=== PATIENT | male | born 1965 | race Caucasian/White ===

== ENCOUNTER 2017-01-18 10:04 | Emergency (ER) | payer MEDICAID ==
[~2017-01-18] VITALS: Ht 177.8 cm; Wt 72.6 kg
[2017-01-18] MEDS ORDERED: SODIUM CHLORIDE 0.9% 1,000 ML IVB ONE (10:18)
[2017-01-18] MEDS ORDERED: SODIUM CHLORIDE 0.9% 500 ML IVB ONE (10:18)
[2017-01-18] MEDS ORDERED: FLUMAZENIL 0.1 MG/ML INJ 10ML MDV IV ONE (10:30)
[2017-01-18 10:50] LABS: Basophils # (auto) 0 uL; Basophils % (auto) 0.6 % (0.0-2.0); CONDITION Y; DEFINITIVE SEE PRINTOUT; Eosinophils # (auto) 0.1 uL; Eosinophils % (auto) 0.8 % (0.0-7.0); Hematocrit 50.6 % (41.0-53.0); Hemoglobin 17.6 g/dL (13.5-17.5); Lymphocytes % (auto) 13.4 % (10.0-50.0); Mean Corpuscular Hemoglobin 35.8 pg (28.0-32.0); Mean Corpuscular Hgb Conc. 34.9 g/dL (32.0-36.0); Mean Corpuscular Volume 102.6 fL (80.0-100.0); Mean Platelet Volume 8.7 fL (7.4-10.4); Monocytes # (auto) 0.7 uL; Monocytes % (auto) 9.4 % (0.0-12.0); Neutrophils # (auto) 5.6 uL; Neutrophils % (auto) 75.8 % (37.0-80.0); Platelet Count (auto) 124 10^3/uL (140-450); Red Cell Distribution Width 13.1 % (11.6-16.0); White Blood Cell 7.4 10^3/uL (4.4-10.8)
[2017-01-18 11:10] LABS: Salicylate 3.2 mg/dL (2.8-20.0)
[2017-01-18 11:13] LABS: Acetaminophen < 2.0 ug/mL (10-30)
[2017-01-18 11:20] VITALS: BP 158/108
[2017-01-18 11:23] LABS: Albumin 3.8 g/dL (3.4-5.0); BUN/Creatinine Ratio 7.1; Potassium 3.4 mmol/L (3.5-5.1); Total Protein 7.5 g/dL (6.4-8.2)
== END 2017-01-18 13:15 | disposition home or self-care (01) ==
LOC: ER 10:18
DX: E86.0 Dehydration (principal); F10.120 Alcohol abuse with intoxication, uncomplicated; F17.210 Nicotine dependence, cigarettes, uncomplicated; F12.10 Cannabis abuse, uncomplicated
CPT/HCPCS: 36415; 70450; 71020; 80053; 80320; 80329; 85025

== ENCOUNTER 2017-01-21 10:57 | Emergency (ER) | payer MEDICAID ==
[~2017-01-21] VITALS: Ht 177.8 cm; Wt 72.6 kg
[2017-01-21 11:43] VITALS: BP 137/102
== END 2017-01-21 12:16 | disposition home or self-care (01) ==
LOC: ER 10:57
DX: F41.9 Anxiety disorder, unspecified (principal); F10.239 Alcohol dependence with withdrawal, unspecified; F12.10 Cannabis abuse, uncomplicated; Y90.9 Presence of alcohol in blood, level not specified; F17.210 Nicotine dependence, cigarettes, uncomplicated; Z76.0 Encounter for issue of repeat prescription

== ENCOUNTER 2017-02-17 08:48 | Emergency (ER) | payer MEDICAID ==
[~2017-02-17] VITALS: Ht 177.8 cm; Wt 77.1 kg
[2017-02-17 09:24] LABS: Basophils # (auto) 0.1 uL; Basophils % (auto) 1.2 % (0.0-2.0); CONDITION Y; Eosinophils # (auto) 0.1 uL; Eosinophils % (auto) 1.5 % (0.0-7.0); Hematocrit 53.3 % (41.0-53.0); Hemoglobin 18.4 g/dL (13.5-17.5); Lymphocytes # (auto) 1.3 uL; Lymphocytes % (auto) 19.6 % (10.0-50.0); Mean Corpuscular Hemoglobin 34.3 pg (28.0-32.0); Mean Corpuscular Hgb Conc. 34.4 g/dL (32.0-36.0); Mean Corpuscular Volume 99.6 fL (80.0-100.0); Mean Platelet Volume 8.6 fL (7.4-10.4); Monocytes # (auto) 0.5 uL; Neutrophils # (auto) 4.8 uL; Neutrophils % (auto) 70.7 % (37.0-80.0); Platelet Count (auto) 110 10^3/uL (140-450); Red Cell Distribution Width 12.9 % (11.6-16.0); White Blood Cell 6.8 10^3/uL (4.4-10.8)
[2017-02-17 09:39] LABS: Urine Bilirubin Negative (Negative); Urine Blood Negative /uL (Negative); Urine Color Yellow (Yellow); Urine Glucose Normal (Normal); Urine Ketone TRACE (Negative); Urine Mucus FEW (None Seen); Urine Nitrite Negative (Negative); Urine RBC <1 /hpf (0 - 3); Urine pH 5.5 (5.0-8.0)
[2017-02-17 09:53] LABS: Anion Gap 14 (5-15); Aspartate Aminotransferase 173 U/L (15-37); BUN/Creatinine Ratio 9.4; Blood Urea Nitrogen 5 mg/dL (7-18); Calcium 8.6 mg/dL (8.5-10.1); Carbon Dioxide 19 mmol/L (21-32); Chloride 106 mmol/L (98-107); GFR African American 212 mL/min; GFR Non-African American 175 mL/min; Glucose 124 mg/dL (74-106); Magnesium 2.6 mg/dL (1.6-2.6); Potassium 3.6 mmol/L (3.5-5.1); Sodium 139 mmol/L (136-145)
[2017-02-17 09:58] LABS: Alkaline Phosphatase 186 U/L (45-117); Bilirubin, Total 1.9 mg/dL (0.2-1.0); Total Protein 7.4 g/dL (6.4-8.2)
[2017-02-17] MEDS ORDERED: SODIUM CHLORIDE 0.9% 1,000 ML IV ONE (10:25)
[2017-02-17] MEDS ORDERED: THIAMINE INJ 100 MG, MULTIPLE VITAMIN 10 ML, FOLIC ACID 1 MG, MAGNESIUM SULF SDV 50% 8 ... IV SCH ×5 (12:00)
[2017-02-17 13:00] VITALS: BP 141/81
== END 2017-02-17 13:31 | disposition home or self-care (01) ==
LOC: ER 08:48
DX: R42 Dizziness and giddiness (principal); F10.10 Alcohol abuse, uncomplicated; F12.10 Cannabis abuse, uncomplicated; R74.8 Abnormal levels of other serum enzymes; R10.84 Generalized abdominal pain; F17.210 Nicotine dependence, cigarettes, uncomplicated
CPT/HCPCS: 36415; 71010; 80053; 80307; 80320; 81001; 83735; 84443; 84484; 85025; 93005; 94761; 96361; 96365; 99285; J3411; J3475; J7030

== ENCOUNTER 2017-07-14 16:27 | Inpatient (IN) | payer MEDICAID ==
[~2017-07-14] VITALS: Ht 177.8 cm; Wt 75.5 kg
[2017-07-14 17:52] LABS: Basophils # (auto) 0 uL; Basophils % (auto) 0.2 % (0.0-2.0); Eosinophils # (auto) 0 uL; Hematocrit 37.3 % (41.0-53.0); Hemoglobin 12.6 g/dL (13.5-17.5); Lymphocytes # (auto) 0.3 uL; Lymphocytes % (auto) 3.9 % (10.0-50.0); Mean Corpuscular Hemoglobin 32.2 pg (28.0-32.0); Mean Corpuscular Hgb Conc. 33.7 g/dL (32.0-36.0); Mean Corpuscular Volume 95.4 fL (80.0-100.0); Monocytes # (auto) 0.9 uL; Monocytes % (auto) 11.1 % (0.0-12.0); Neutrophils # (auto) 7.2 uL; Neutrophils % (auto) 84.8 % (37.0-80.0); Nucleated Red Blood Cells % 0.1 %; Red Blood Cells 3.91 10^6/uL (4.5-5.90); White Blood Cell 8.5 10^3/uL (4.4-10.8)
[2017-07-14 18:12] LABS: Platelet Count (auto) 77 10^3/uL (140-450)
[2017-07-14 18:32] LABS: Alanine Aminotransferase 42 U/L (16-61); Albumin 3.7 g/dL (3.4-5.0); Alkaline Phosphatase 273 U/L (45-117); Anion Gap 18 (5-15); Aspartate Aminotransferase 92 U/L (15-37); BUN/Creatinine Ratio 16.7; Bilirubin, Total 4.3 mg/dL (0.2-1.0); Blood Alcohol < 3.0 mg/dL (0-5); Blood Urea Nitrogen 15 mg/dL (7-18); Calcium 8.9 mg/dL (8.5-10.1); Carbon Dioxide 25 mmol/L (21-32); Chloride 94 mmol/L (98-107); GFR African American 115 mL/min; GFR Non-African American 95 mL/min; Glucose 113 mg/dL (74-106); Potassium 3.5 mmol/L (3.5-5.1); Sodium 137 mmol/L (136-145)
[2017-07-14] MEDS ORDERED: LORazepam 2MG/ML-1ML VIAL IV ONE (19:45)
[2017-07-14] MEDS ORDERED: SODIUM CHLORIDE 0.9% 1,000 ML IV ONE (19:45)
[2017-07-14 20:13] LABS: Urine Bacteria NONE SEEN /hpf (None Seen); Urine Blood Negative /uL (Negative); Urine Hyaline Cast FEW /lpf (0 - 2); Urine Mucus FEW (None Seen); Urine WBC 3 /hpf (0 - 3)
[2017-07-14 20:27] LABS: Alcohol, Urine < 3.0 mg/dL (0-5); Amphetamine Screen, Urine NEGATIVE (NEGATIVE); Barbiturate Scree,Urine NEGATIVE (NEGATIVE); Benzodiazephine Screen, Urine NEGATIVE (NEGATIVE); Cannabinoid Screen, Urine NEGATIVE (NEGATIVE); Cocaine Screen, Urine NEGATIVE (NEGATIVE); Opiate Scree,Urine NEGATIVE (NEGATIVE); Phencyclidine Screen, Urine NEGATIVE (NEGATIVE)
[2017-07-14] MEDS ORDERED: ONDANSETRON HCL 4 MG/2 ML VIAL IV ONE (20:45)
[2017-07-15] MEDS ORDERED: ONDANSETRON HCL 4 MG/2 ML VIAL IV PRN (01:15)
[2017-07-15] MEDS: LORazepam 2MG/ML-1ML VIAL IV PRN ×3 (02:52→21:47)
[2017-07-15] MEDS: chlordiazePOXIDE HCL 25 MG CAP PO PRN ×2 (10:40→20:09)
[2017-07-15] MEDS ORDERED: THIAMINE INJ 100 MG, MULTIPLE VITAMIN 10 ML, FOLIC ACID 1 MG, MAGNESIUM SULF SDV 50% 8 ... IV ONE ×5 (12:00)
[2017-07-15 13:00] VITALS: BP 108/69
[2017-07-15 17:00] VITALS: BP 127/75
[2017-07-15] MEDS: THIAMINE INJ 100 MG, MULTIPLE VITAMIN 10 ML, FOLIC ACID 1 MG, MAGNESIUM SULF SDV 50% 8 ... IV SCH ×5 (21:47)
[2017-07-15] MEDS: PANTOPRAZOLE 40 MG/10 ML VIAL IV SCH (21:59)
[2017-07-15 22:00] VITALS: BP 119/70
[2017-07-16] VITALS (11 sets, daily range): BP systolic 95–113; BP diastolic 58–75
[2017-07-16 08:17] LABS: Basophils # (auto) 0 uL; Basophils % (auto) 0.4 % (0.0-2.0); Eosinophils # (auto) 0 uL; Lymphocytes # (auto) 0.7 uL; Monocytes # (auto) 0.5 uL; Neutrophils # (auto) 2.2 uL; White Blood Cell 3.4 10^3/uL (4.4-10.8)
[2017-07-16 08:19] LABS: Eosinophils % (auto) 0.8 % (0.0-7.0); Hematocrit 20.2 % (41.0-53.0); Lymphocytes % (auto) 21.1 % (10.0-50.0); Mean Corpuscular Hemoglobin 33.1 pg (28.0-32.0); Mean Corpuscular Hgb Conc. 33.9 g/dL (32.0-36.0); Mean Corpuscular Volume 97.7 fL (80.0-100.0); Monocytes % (auto) 13.3 % (0.0-12.0); Neutrophils % (auto) 64.4 % (37.0-80.0); Red Blood Cells 2.07 10^6/uL (4.5-5.90); Red Cell Distribution Width 15.9 % (11.8-14.3)
[2017-07-16 08:28] LABS: INR 1.28 (0.9-1.15); Partial Thromboplastin Time 29.9 sec (22.64-33.71)
[2017-07-16 08:32] LABS: Platelet Count (auto) 44 10^3/uL (140-450)
[2017-07-16 08:35] LABS: Albumin 2.6 g/dL (3.4-5.0); BUN/Creatinine Ratio 61.1; Bilirubin, Total 2.3 mg/dL (0.2-1.0); Calcium 7.3 mg/dL (8.5-10.1); Potassium 3.1 mmol/L (3.5-5.1); Total Protein 4.7 g/dL (6.4-8.2)
[2017-07-16 08:36] LABS: Hemoglobin 6.9 g/dL (13.5-17.5)
[2017-07-16] MEDS: PANTOPRAZOLE 40 MG/10 ML VIAL IV SCH (09:49)
[2017-07-16] MEDS: LORazepam 2MG/ML-1ML VIAL IV PRN ×2 (10:43→21:54)
[2017-07-16] MEDS ORDERED: POTASSIUM CHLORIDE 40 MEQ, LIDOCAINE 1% (LOCAL ANESTH.) 4 ML in SODIUM CHL 0.9% 100 ML IV ONE (10:45)
[2017-07-16] MEDS ORDERED: SODIUM CHLORIDE LOCK 10 ML ONE (11:12)
[2017-07-16] MEDS ORDERED: diphenhdrAMINE HCL 50 MG/1 ML VL ONE (11:12)
[2017-07-16] MEDS ORDERED: LIDOCAINE VISCOUS 2% 15ML UD ONE (11:12)
[2017-07-16] MEDS ORDERED: NALOXONE HCL 0.4 MG/ML VIAL ONE ×2 (11:12→13:52)
[2017-07-16] MEDS ORDERED: FLUMAZENIL 0.1 MG/ML INJ 10ML MDV IV ONE ×2 (11:12→13:52)
[2017-07-16 11:16] LABS: Basophils # (auto) 0 uL; Basophils % (auto) 0.3 % (0.0-2.0); Eosinophils # (auto) 0 uL; Eosinophils % (auto) 0.4 % (0.0-7.0); Hemoglobin 7.5 g/dL (13.5-17.5); Lymphocytes # (auto) 0.6 uL; Lymphocytes % (auto) 15.3 % (10.0-50.0); Mean Corpuscular Hemoglobin 33.4 pg (28.0-32.0); Mean Corpuscular Hgb Conc. 34.1 g/dL (32.0-36.0); Monocytes # (auto) 0.5 uL; Monocytes % (auto) 11.8 % (0.0-12.0); Neutrophils % (auto) 72.2 % (37.0-80.0); Nucleated Red Blood Cells % 0.1 %; Red Blood Cells 2.24 10^6/uL (4.5-5.90); Red Cell Distribution Width 15.7 % (11.8-14.3); White Blood Cell 4.1 10^3/uL (4.4-10.8)
[2017-07-16 11:19] LABS: Platelet Count (auto) 56 10^3/uL (140-450)
[2017-07-16] MEDS: fentaNYL CITRATE 100 MCG/2 ML VL ONE ×2 (14:07→14:11)
[2017-07-16] MEDS: MIDAZOLAM HCL 5 MG/ML-1ML VIAL ONE ×2 (14:07→14:11)
[2017-07-16] MEDS: THIAMINE INJ 100 MG, MULTIPLE VITAMIN 10 ML, FOLIC ACID 1 MG, MAGNESIUM SULF SDV 50% 8 ... IV SCH ×5 (21:54)
[2017-07-17 05:50] VITALS: BP 124/71
[2017-07-17 06:24] LABS: Basophils # (auto) 0 uL; Eosinophils # (auto) 0 uL; Hemoglobin 9.6 g/dL (13.5-17.5); Lymphocytes # (auto) 0.4 uL; Monocytes # (auto) 0.3 uL; Neutrophils # (auto) 2.2 uL
[2017-07-17 06:27] LABS: Basophils % (auto) 0.5 % (0.0-2.0); Eosinophils % (auto) 1.5 % (0.0-7.0); Hematocrit 28.1 % (41.0-53.0); Lymphocytes % (auto) 14.8 % (10.0-50.0); Mean Corpuscular Hemoglobin 32.6 pg (28.0-32.0); Mean Corpuscular Hgb Conc. 34.2 g/dL (32.0-36.0); Mean Corpuscular Volume 95.2 fL (80.0-100.0); Monocytes % (auto) 9.4 % (0.0-12.0); Neutrophils % (auto) 73.8 % (37.0-80.0); Nucleated Red Blood Cells % 0.2 %; Platelet Count (auto) 51 10^3/uL (140-450); Red Blood Cells 2.95 10^6/uL (4.5-5.90)
[2017-07-17 06:54] LABS: Albumin 2.8 g/dL (3.4-5.0); BUN/Creatinine Ratio 30.4; Bilirubin, Total 2.5 mg/dL (0.2-1.0); Calcium 7.6 mg/dL (8.5-10.1); Magnesium 2.7 mg/dL (1.6-2.6); Potassium 3.4 mmol/L (3.5-5.1); Total Protein 5.2 g/dL (6.4-8.2)
[2017-07-17] MEDS: LORazepam 2MG/ML-1ML VIAL IV PRN (08:11)
[2017-07-17 09:00] VITALS: BP 111/70
[2017-07-17] MEDS ORDERED: POTASSIUM CHLORIDE 40 MEQ, LIDOCAINE 1% (LOCAL ANESTH.) 4 ML in SODIUM CHL 0.9% 100 ML IV ONE ×2 (09:15→10:00)
[2017-07-17] MEDS ORDERED: LORazepam 2MG/ML-1ML VIAL IV PRN (09:45)
[2017-07-17] MEDS: PANTOPRAZOLE 40 MG TAB PO SCH (10:26)
[2017-07-17] MEDS: chlordiazePOXIDE HCL 25 MG CAP PO PRN ×3 (10:26→20:59)
[2017-07-17 13:00] VITALS: BP 122/76
[2017-07-17 16:58] VITALS: BP 119/79
[2017-07-17 20:00] VITALS: BP 122/87
[2017-07-17] MEDS: THIAMINE INJ 100 MG, MULTIPLE VITAMIN 10 ML, FOLIC ACID 1 MG, MAGNESIUM SULF SDV 50% 8 ... IV SCH ×5 (20:59)
[2017-07-17 22:00] VITALS: BP 122/87
[2017-07-18] VITALS (7 sets, daily range): BP systolic 103–124; BP diastolic 67–85
[2017-07-18] MEDS: chlordiazePOXIDE HCL 25 MG CAP PO PRN ×5 (02:19→20:17)
[2017-07-18 06:50] LABS: Basophils # (auto) 0 uL; Eosinophils # (auto) 0.1 uL; Eosinophils % (auto) 2.4 % (0.0-7.0); Hematocrit 29.2 % (41.0-53.0); Hemoglobin 9.9 g/dL (13.5-17.5); Lymphocytes # (auto) 0.6 uL; Lymphocytes % (auto) 18.4 % (10.0-50.0); Mean Corpuscular Hemoglobin 32.4 pg (28.0-32.0); Mean Corpuscular Hgb Conc. 33.8 g/dL (32.0-36.0); Mean Corpuscular Volume 95.7 fL (80.0-100.0); Monocytes # (auto) 0.5 uL; Monocytes % (auto) 13.9 % (0.0-12.0); Neutrophils # (auto) 2.2 uL; Neutrophils % (auto) 64.3 % (37.0-80.0); Nucleated Red Blood Cells % 0.1 %; Platelet Count (auto) 71 10^3/uL (140-450); Red Blood Cells 3.05 10^6/uL (4.5-5.90); Red Cell Distribution Width 17.3 % (11.8-14.3); White Blood Cell 3.4 10^3/uL (4.4-10.8)
[2017-07-18 07:10] LABS: Albumin 2.6 g/dL (3.4-5.0); BUN/Creatinine Ratio 23.5; Bilirubin, Total 2.3 mg/dL (0.2-1.0); Calcium 7.4 mg/dL (8.5-10.1); Potassium 3.4 mmol/L (3.5-5.1); Total Protein 5.1 g/dL (6.4-8.2)
[2017-07-18] MEDS: PANTOPRAZOLE 40 MG TAB PO SCH (09:39)
[2017-07-18] MEDS: LACTULOSE 20Gm/30ML SOLN PO SCH ×2 (12:02→17:29)
[2017-07-18] MEDS: THIAMINE INJ 100 MG, MULTIPLE VITAMIN 10 ML, FOLIC ACID 1 MG, MAGNESIUM SULF SDV 50% 8 ... IV SCH ×5 (20:16)
[2017-07-18] MEDS: NutriHep 250 mL Bottle PO SCH (22:00)
[2017-07-19] MEDS: LACTULOSE 20Gm/30ML SOLN PO SCH ×5 (01:02→23:56)
[2017-07-19] MEDS: chlordiazePOXIDE HCL 25 MG CAP PO PRN ×2 (04:34→20:40)
[2017-07-19 05:34] VITALS: BP 121/79
[2017-07-19 07:59] VITALS: BP 109/70
[2017-07-19] MEDS: PANTOPRAZOLE 40 MG TAB PO SCH (10:00)
[2017-07-19] MEDS: NutriHep 250 mL Bottle PO SCH ×2 (10:00→21:38)
[2017-07-19 12:23] LABS: Hematocrit 27.8 % (41.0-53.0); Hemoglobin 9.4 g/dL (13.5-17.5); Mean Corpuscular Hemoglobin 32.4 pg (28.0-32.0); Mean Corpuscular Volume 95.4 fL (80.0-100.0); Platelet Count (auto) 78 10^3/uL (140-450); Red Blood Cells 2.91 10^6/uL (4.5-5.90); Red Cell Distribution Width 16.9 % (11.8-14.3); White Blood Cell 3.9 10^3/uL (4.4-10.8)
[2017-07-19 12:28] LABS: Band Neutrophils % (manual) 0; Basophils % (manual) 0 (0.0-2.0); Blast Cells 0; Eosinophils % (manual) 0 (0-7); Metamyelocytes % 0; Myelocytes % 0; Promyelocytes % 0; Reactive Lymphocytes 0
[2017-07-19 12:39] LABS: Lymphocytes % (manual) 4 (10.0-50.0); Monocytes % (manual) 14 (0-12)
[2017-07-19 12:47] LABS: Albumin 2.6 g/dL (3.4-5.0); BUN/Creatinine Ratio 17.9; Bilirubin, Total 2.3 mg/dL (0.2-1.0); Calcium 7.5 mg/dL (8.5-10.1); Total Protein 5.2 g/dL (6.4-8.2)
[2017-07-19 13:00] VITALS: BP 114/74
[2017-07-19 17:10] VITALS: BP 118/76
[2017-07-19] MEDS: THIAMINE INJ 100 MG, MULTIPLE VITAMIN 10 ML, FOLIC ACID 1 MG, MAGNESIUM SULF SDV 50% 8 ... IV SCH ×5 (19:46)
[2017-07-19] MEDS ORDERED: POTASSIUM CHLORIDE 40 MEQ, LIDOCAINE 1% (LOCAL ANESTH.) 4 ML in SODIUM CHL 0.9% 250 ML IV ONE (21:00)
[2017-07-19] MEDS ORDERED: POTASSIUM CHL 20 Meq TABLET PO ONE (21:00)
[2017-07-19 22:28] VITALS: BP 129/74
[2017-07-20 04:58] VITALS: BP 118/71
[2017-07-20] MEDS: LACTULOSE 20Gm/30ML SOLN PO SCH ×2 (05:31→11:22)
[2017-07-20 06:52] LABS: Hematocrit 27.9 % (41.0-53.0); Hemoglobin 9.5 g/dL (13.5-17.5); Mean Corpuscular Hemoglobin 32.5 pg (28.0-32.0); Mean Corpuscular Hgb Conc. 33.9 g/dL (32.0-36.0); Mean Corpuscular Volume 95.9 fL (80.0-100.0); Platelet Count (auto) 94 10^3/uL (140-450); Red Blood Cells 2.91 10^6/uL (4.5-5.90); Red Cell Distribution Width 16.5 % (11.8-14.3); White Blood Cell 4.1 10^3/uL (4.4-10.8)
[2017-07-20 06:56] LABS: Band Neutrophils % (manual) 0; Basophils % (manual) 0 (0.0-2.0); Blast Cells 0; Eosinophils % (manual) 0 (0-7); Metamyelocytes % 0; Myelocytes % 0; Promyelocytes % 0; Reactive Lymphocytes 0
[2017-07-20 07:11] LABS: Albumin 2.4 g/dL (3.4-5.0); BUN/Creatinine Ratio 16.1; Potassium 3.5 mmol/L (3.5-5.1)
[2017-07-20 07:15] LABS: Total Protein 4.9 g/dL (6.4-8.2)
[2017-07-20 07:43] LABS: Lymphocytes % (manual) 10 (10.0-50.0); Monocytes % (manual) 24 (0-12)
[2017-07-20 08:48] VITALS: BP 117/78
[2017-07-20] MEDS: NutriHep 250 mL Bottle PO SCH (09:09)
[2017-07-20] MEDS: PANTOPRAZOLE 40 MG TAB PO SCH (09:09)
[2017-07-20 12:33] VITALS: BP 117/78
[2017-07-20 13:00] VITALS: BP 117/73
== END 2017-07-20 13:40 | disposition home or self-care (01) | DRG 241 ==
LOC: EDBD 16:27 → ER 16:37 → TELE 16:38 → TELE-WESTW 07-15 08:28
PROVIDERS: ADMIT Nurse Practitioner Family; ATTEND Internal Medicine
PROC: 30233N1 Transfusion of Nonautologous Red Blood Cells into Peripheral Vein, Percutaneous Approach (ICD-10-PCS; 2017-07-16)
PROC: 0DJ08ZZ Inspection of Upper Intestinal Tract, Via Natural or Artificial Opening Endoscopic (ICD-10-PCS; principal; 2017-07-20)
DX: K29.21 Alcoholic gastritis with bleeding (principal); I85.11 Secondary esophageal varices with bleeding; K76.6 Portal hypertension; D69.6 Thrombocytopenia, unspecified; E88.09 Other disorders of plasma-protein metabolism, not elsewhere classified; K70.30 Alcoholic cirrhosis of liver without ascites; K20.9 Esophagitis, unspecified; D72.819 Decreased white blood cell count, unspecified; D64.9 Anemia, unspecified; F17.210 Nicotine dependence, cigarettes, uncomplicated; K29.81 Duodenitis with bleeding; K72.90 Hepatic failure, unspecified without coma; K31.89 Other diseases of stomach and duodenum; E87.6 Hypokalemia; Z82.49 Family history of ischemic heart disease and other diseases of the circulatory system
CPT/HCPCS: 36415; 43235; 71045; 76705; 80053; 80307; 80320; 81001; 82140; 83735; 85007; 85025; 85027; 85610; 85730; 86850; 86900; 86901; 86920; 87081; 87086; 93005; 94761; 96361; 96365; 96375; C9113; J2001; J2250; J2405